=== PATIENT | male | born 1995 | race Caucasian/White ===

== ENCOUNTER 2021-02-24 17:06 | Emergency (ER) | payer OTHER, SELFPAY ==
[2021-02-24 17:27] VITALS: BP 138/86; PULSE 113; RESP 16; TEMP 37.1; O2SAT 99
--- NOTE | 2021-02-24 17:37 | ED.EXTPRO ---
HPI - Extremity Problem General Chief complaint: Extremity Problem,Nontraumatic Stated complaint: R LEG REDNESS Time Seen by Provider: 02/24/21 17:37 Mode of arrival: ambulatory Limitations: no limitations History of Present Illness HPI Narrative: Alyssia Sanford is a 25 yo male with no PMH who comes to [facility] with swelling of his right lower extremity. He has an sore on his anterior lower right leg on the tibia that occurred 2 weeks ago and yesterday when he woke up he said his foot was swollen and his leg was turning red and he has not changed much since yesterday but he decided to come and see someone he is allergic to sulfa drugs and is and he is afebrile, nontachycardic, no nausea vomiting, not feeling ill states he is anxious being here Related Data Allergies Allergy/AdvReac Type Severity Reaction Status Date / Time Sulfa (Sulfonamide Allergy Mild Unknown Verified 02/24/21 17:20 Antibiotics) skin cleanser combination Allergy Unknown conjunctivi Verified 02/24/21 17:20 no. 10 tis [Rosanil] skin cleanser combination Allergy Unknown conjunctivi Verified 02/24/21 17:20 no.23 tis [Sumadan] sulfacetamide Allergy Unknown conjunctivi Verified 02/24/21 17:20 tis sulfur [Avar] Allergy Unknown conjunctivi Verified 02/24/21 17:20 tis urea [Rosula] Allergy Unknown conjunctivi Verified 02/24/21 17:20 tis Review of Systems Review of Systems: Narrative: CONSTITUTIONAL: Denies fever, chills, sweats. EYES: Denies visual changes, redness, discharge. ENT: Denies rhinorrhea, congestion, sore throat, otalgia. CARDIOVASCULAR: Denies chest pain, palpitations, edema. RESPIRATORY: Denies dyspnea, wheezing, cough GASTROINTESTINAL: Denies abdominal pain, nausea, vomiting, diarrhea. GENITOURINARY: Denies dysuria, hematuria, abnormal discharge SKIN: Denies rash or itching. He is lower right extremity is red and swollen surrounding a sore where he was injured about 2 weeks ago NEUROLOGIC: Denies numbness, or focal weakness. PSYCHIATRIC: Denies anxiety or depression. PMF Past Medical History Medical History No acute medical problems Family History Family History Sibling Family history of attention deficit hyperactivity disorder (ADHD) Social History Social History Smoking status: Never smoker Alcohol intake: never Comments At time of signature, I agree with nursing past medical, surgical, social and family history. There is no relevant family history pertinent to the presenting complaint. Exam Narrative: Exam Narrative: GENERAL: This is a well-nourished, well-developed patient, in mild distress. HEAD: normocephalic, atraumatic. EYES: PERRL. Sclera clear/white. Vision is grossly intact. EARS: External ears normal, auditory canals clear and without drainage, TMs normal without perforation. Hearing grossly intact. NOSE: External nose normal without nasal discharge, nares without redness, no rhinorrhea. THROAT: Mucous membranes moist, posterior pharynx NECK: Neck supple, non-tender CARDIOVASCULAR: Regular rate and rhythm without murmurs, gallops, or rubs. RESPIRATORY: Clear to auscultation. Breath sounds equal bilaterally. No wheezes, rales, or rhonchi. GASTROINTESTINAL: Abdomen soft, non-tender, SKIN: warm, intact with erythema of the lower right extremity that starts about 4 inches below the knee it is in scabbed over sore that he took the scab off of and there is redness that starts from that area down to the top of his foot and around 3 cores of the back of his his leg his foot is swollen on the lateral side right at the ankle area, the back of his leg and around the redness of the sore feels slightly warm foot is normal temperature he has 2+ pedal pulse NEURO: awake, alert, and oriented to person, place and time. There were no obvious foc
== END 2021-02-24 17:55 | disposition home or self-care (01) ==
PROVIDERS: Emergency Provider Nurse Practitioner; PCP Family Medicine
DX: L03.115 Cellulitis of right lower limb (principal); F41.9 Anxiety disorder, unspecified
CPT/HCPCS: 99213; G0463

== ENCOUNTER 2021-02-24 20:25 | Emergency (ER) | payer OTHER, SELFPAY ==
--- NOTE | ~2021-02-24 | XR_ITS ---
EXAMINATION: XR tibia fibula RT 2V EXAM DATE: 02/24/2021 20:58 INDICATION: Initial encounter following injury, with pain of the right tibia/fibula. Injury 2 weeks a go, pain and redness. TECHNIQUE: Right tibia/fibula frontal and lateral projections obtained and reviewed. There is no bhanu or study for comparison. FINDINGS: Right tibial and fibular shafts unremarkable. There are no acute fractures or dislocations identified. There is no subcutaneous gas. The soft tissue is unremarkable. There are no radiopaq ue foreign bodies. IMPRESSION: 1. Right tibia/fibula exam without acute osseous findings. Reviewed, dictated and finalized at location A.
[2021-02-24 20:26] VITALS: BP 140/76; PULSE 119; RESP 20; TEMP 35.8; O2SAT 98
[2021-02-24 20:36] VITALS: BP 138/84; O2SAT 96
[2021-02-24 20:37] VITALS: O2SAT 98
--- NOTE | 2021-02-24 20:45 | ED.LOWEXIN ---
HPI - Extremity Injury (Lower) General Chief Complaint: Extremity Injury, Lower Stated Complaint: rt leg infection and swelling Time Seen by Provider: 02/24/21 20:33 Source: patient, family and RN notes reviewed Mode of arrival: ambulatory Limitations: no limitations History of Present Illness HPI Narrative: Patient is 25 years old white male accidentally hit a metal pole 2 weeks ago to the front of the right lower leg called some impression, healed by a scab. Patient removed the scab 2 to 3 days ago subsequently developed redness around that area. Patient was seen by urgent care today and started on Keflex 1 hour ago. Patient came to the emergency room because he believes the redness is getting worse. Patient denies any fever, chills, nausea, vomiting. Patient is healthy otherwise, does not take any medication at home. Related Data Allergies Allergy/AdvReac Type Severity Reaction Status Date / Time Sulfa (Sulfonamide Allergy Mild Unknown Verified 02/24/21 17:20 Antibiotics) skin cleanser combination Allergy Unknown conjunctivi Verified 02/24/21 17:20 no. 10 tis [Rosanil] skin cleanser combination Allergy Unknown conjunctivi Verified 02/24/21 17:20 no.23 tis [Sumadan] sulfacetamide Allergy Unknown conjunctivi Verified 02/24/21 17:20 tis sulfur [Avar] Allergy Unknown conjunctivi Verified 02/24/21 17:20 tis urea [Rosula] Allergy Unknown conjunctivi Verified 02/24/21 17:20 tis Review of Systems Review of Systems: Narrative: CONSTITUTIONAL: Denies fever, chills, or sweats. EYES: Denies visual changes, redness, or discharge. ENT: Denies rhinorrhea, congestion, sore throat, or otalgia. CARDIOVASCULAR: Denies chest pain, palpitations, or edema. RESPIRATORY: Denies cough or dyspnea. GASTROINTESTINAL: Denies abdominal pain, nausea, vomiting, or diarrhea. GENITOURINARY: Denies dysuria or hematuria. SKIN: Denies rash or itching. MUSCULOSKELETAL: Denies back pain, joint pain, or myalgia. NEUROLOGIC: Denies headache, numbness, or weakness. PSYCHIATRIC: Denies anxiety or depression. [facility] Past Medical History Medical History No acute medical problems Family History Family History Sibling Family history of attention deficit hyperactivity disorder (ADHD) Social History Social History Smoking status: Never smoker Alcohol intake: never Exam Narrative: Exam Narrative: General appearance: Well-developed, well-nourished Skin: Right lower extremity showed 3 x 5 mm sore, closed, anteriorly, no discharge, surrounded by erythema which is slightly warm. No tenderness at the calf muscles. No bruises. Chest and respiratory: Airway patent, no respiratory distress, no accessory muscle use Heart: Regular rate/rhythm Vascular: Normal peripheral pulses, normal capillary refill. Musculoskeletal: Normal range of motion, nontender back Course Course Emergency Course: Here he is does not stable Vital Signs Vital signs: Vital Signs Temperature 35.8 C L 02/24/21 20:26 Pulse Rate 119 H 02/24/21 20:26 Respiratory Rate 20 02/24/21 20:26 Blood Pressure 140/76 02/24/21 20:26 Pulse Oximetry 98 02/24/21 20:26 Temperature 35.8 C L 02/24/21 20:26 Pulse Rate 119 H 02/24/21 20:26 Respiratory Rate 20 02/24/21 20:26 Blood Pressure 138/84 02/24/21 20:36 Pulse Oximetry 98 02/24/21 20:37 MDM - Extremity Injury (Lower) MDM Narrative Medical decision making narrative: Right lower extremity cellulitis secondary to trauma Lab Data Result diagr
[2021-02-24 21:02] LABS: Basophils Percent Auto 0.3 % (0.2-1.2); Eosinophils Absolute Auto 0.1 K/mm3 (0-0.3); Eosinophils Percent Auto 0.5 % (0-4.4); Hematocrit 39.2 % (42.0-52.0); Hemoglobin 13.6 g/dL (14.0-18.0); Immature Granulocyte Absolute 0.07 K/mm3 (0.00-0.031); Immature Granulocyte Percent A 0.5 % (0-0.5); Lymphocytes Absolute Auto 1.98 K/mm3 (0.9-3.2); Lymphocytes Percent Auto 14.4 % (18.3-44.2); Mean Corpuscular HGB Conc 34.7 g/dl (32-36); Mean Corpuscular Hemoglobin 32.2 pg (26-34); Mean Corpuscular Volume 92.9 fl (80-100); Mean Platelet Volume 9.3 fl (7.4-10.4); Monocytes Absolute Auto 1.6 K/mm3 (0.1-0.6); Monocytes Percent Auto 11.2 % (2.6-8.5); Neutrophils Absolute Auto 10.1 K/mm3 (1.3-6.7); Neutrophils Percent Auto 73.1 % (45.5-73.1); Platelet Count Result 246 k/mm3 (150-375); Red Blood Count 4.22 M/mm3 (4.6-6.20); Red Cell Distribution Width 11.8 % (11.5-14.5); White Blood Count 13.8 K/mm3 (4.5-10.0)
== END 2021-02-24 23:13 | disposition home or self-care (01) ==
PROVIDERS: Emergency Provider Emergency Medicine; PCP Family Medicine
DX: L03.115 Cellulitis of right lower limb (principal)
CPT/HCPCS: 36415; 73590; 85025; 96365; 96366; 99284; J3370

== ENCOUNTER 2021-03-12 17:06 | Outpatient (CLI) | payer OTHER, SELFPAY | END 2021-03-12 17:07 | disposition home or self-care (01) | LOC: ANHCOVIDVC 17:06 | PROVIDERS: PCP Family Medicine | DX: Z23 Encounter for immunization (principal) | CPT/HCPCS: 0001A; 91300 ==

== ENCOUNTER → 2021-03-20 16:17 | Outpatient (CLI) | payer OTHER, SELFPAY ==
--- NOTE | ~2021-03-20 | XR_ITS ---
EXAMINATION: XR tibia fibula RT 2V DATE: 03/20/2021 16:37 INDICATION: Right lower leg erythema and swelling. TECHNIQUE: 2 views of right tibia and fibula on 3 radiographs were obtained. COMPARISON: Right tibia and fibula radiographs 02/24/2021 FINDINGS: Bone alignment is normal. No fracture. There is no evidence of osteomyelitis. Joint spaces are well maintained. IMPRESSION: 1. Normal tibia and fibula. Reviewed, dictated and finalized at location B. IMPRESSION: 1. Normal tibia and fibula.
== END ==
PROVIDERS: PCP Family Medicine; Visit Provider Family Medicine
DX: L03.90 Cellulitis, unspecified (principal)
CPT/HCPCS: 73590

== ENCOUNTER 2021-04-02 16:55 | Outpatient (CLI) | payer OTHER, SELFPAY | END 2021-04-02 16:56 | disposition home or self-care (01) | LOC: ANHCOVIDVC 16:55 | PROVIDERS: PCP Family Medicine | DX: Z23 Encounter for immunization (principal) | CPT/HCPCS: 0002A; 91300 ==

== ENCOUNTER → 2021-06-08 08:45 | Outpatient (CLI) | payer OTHER, SELFPAY ==
--- NOTE | ~2021-06-08 | US_ITS ---
US abdomen limited DATE: 06/08/2021 09:23 INDICATION: Abnormal liver function studies TECHNIQUE: Real-time imaging of liver, pancreas, gallbladder COMPARISON: None FINDINGS: There is hepatic steatosis. No hepatic or pancreatic space-occupying mass lesion is evident. No evidence of gallstones, gallbladd er wall thickening or abnormal pericholecystic fluid collection. Negative sonographic Mckinney's sign. The common bile duct measures 4 mm, normal. IMPRESSION: Hepatic steatosis Reviewed, dictated and finalized at Location A. Reviewed, dictated and finalized at location A. IMPRESSION: Hepatic steatosis
== END ==
PROVIDERS: Visit Provider Family Medicine
DX: R94.5 Abnormal results of liver function studies (principal); K76.0 Fatty (change of) liver, not elsewhere classified
CPT/HCPCS: 76705

== ENCOUNTER 2021-07-16 12:13 | Emergency (ER) | payer OTHER, SELFPAY ==
--- NOTE | ~2021-07-16 | XR_ITS ---
EXAMINATION: XR foot RT min 3V DATE: 07/16/2021 12:35 INDICATION: Pain at the right great toe and medial right foot post injury 2 days prior TECHNIQUE: Dorsoplantar, two oblique and lateral views of the right foot were obtained. COMPARISON: None. FINDINGS: Fracture potentially intra-articular at the distal dorsal rim of the medial cuneiform with 1-2 mm lizandro siri displacement of the small fragment which is best appreciated on the lateral projection. Otherwise normal alignment at the right foot. No other fractures identified. Joint spaces are normal. Soft tis rohini swelling at the medial aspect of the right foot. IMPRESSION: 1. Minimally displaced potentially an intra-articular fracture at the dorsal aspect of the distal mar gin of the medial cuneiform. Reviewed, dictated and finalized at location A. IMPRESSION: 1. Minimally displaced potentially an intra-articular fracture at the dorsal as pect of the distal margin of the medial cuneiform.
[2021-07-16 12:23] VITALS: BP 135/93; PULSE 89; RESP 16; TEMP 36.5; O2SAT 100
--- NOTE | 2021-07-16 12:29 | ED.GENADULT ---
HPI - General Adult General Chief complaint: Extremity Injury, Lower Stated complaint: rt foot injury Source: patient Mode of arrival: ambulatory Limitations: no limitations History of Present Illness HPI narrative: Patient is a 26-year-old male who presents to the [facility] via POV for evaluation of a right foot injury that occurred 2 days ago. He states his right foot hit a rock while jumping off a larger rock. Additionally, he reports bruising, swelling, and pain. Pain is intermittent and sharp in nature. Current pain is 7 out of 10 on a pain scale. He also reports a avulsion to right great toe. Denies taking OTC meds for symptoms. He has noticed a reduction in pain and swelling when wearing an wrap. Symptoms are improved with sitting. Pain worsens with walking and weightbearing. Related Data Allergies Allergy/AdvReac Type Severity Reaction Status Date / Time Sulfa (Sulfonamide Allergy Mild Unknown Verified 07/16/21 12:24 Antibiotics) skin cleanser combination Allergy Unknown conjunctivi Verified 07/16/21 12:24 no. 10 tis [Rosanil] skin cleanser combination Allergy Unknown conjunctivi Verified 07/16/21 12:24 no.23 tis [Sumadan] sulfacetamide Allergy Unknown conjunctivi Verified 07/16/21 12:24 tis sulfur [Avar] Allergy Unknown conjunctivi Verified 07/16/21 12:24 tis urea [Rosula] Allergy Unknown conjunctivi Verified 07/16/21 12:24 tis Review of Systems Review of Systems: Denies fever, chills, sweats, change in appetite, lymphadenopathy, shortness of breath, chest pain, heart palpitations, erythema, streaking, warmth, decreased ROM, cyanosis, hematoma, deformity, or puncture, ligament laxity, pain at rest. [facility] Past Medical History Medical History Corneal scar and opacity Essential hypertension Nicotine dependence, chewing tobacco, uncomplicated No acute medical problems Family History Family History Sibling Family history of attention deficit hyperactivity disorder (ADHD) Social History Social History Smoking status: Current some day smoker Tobacco type: e-cigarettes/vaping Additional smoking assessment comments: 3 cigarettes per day plus vape. Alcohol intake: current Drinks per week: 28 Substance use: never Substance use type: does not use Gender identity (if verbalized by the patient): Male Comments I have reviewed and agree with the patient's past medical, surgical, social, and family hx as documented by the RN. There is no relevant family history pertinent to the presenting complaint. Exam Narrative: GENERAL: Well-appearing, well-nourished, and in no acute distress. HEAD: Normocephalic, atraumatic. NECK: Supple. No Lymphadenopathy or nuchal rigidity appreciated. CHEST: Bilateral lung william are clear to auscultation. No respiratory distress. No evidence of cough or pleuritic cp upon examination. HEART: Regular rate and rhythm. No murmur, gallop, or rub heard. EXTREMITIES: Moderate generalized swelling noted to right foot. Point tenderness noted to medial aspect of right foot. Mild contusion noted to medial aspect of right foot. Small skin avulsion noted to medial aspect of right great toe. No evidence of decreased ROM, cyanosis, hematoma, deformity, rash, or puncture. Mild generalized pain elicited with all active/passive ROM. No evidence of dislocation, ligament laxity, effusion, or pain at rest. Pulses palpable at 2+, strength 5/5, and cap refill < 3 seconds in affected extremity. DTRs normal. Gait normal. SKIN: Warm, dry, no rash. Small skin avulsion noted to medial aspect of right great toe NEURO: No focal deficits. Alert and oriented x3. SPECIAL OBSERVATIONS: Smiling. Laughing. Course Vital Signs Vital signs: Vital Signs Temperature 97.7
== END 2021-07-16 13:30 | disposition home or self-care (01) ==
PROVIDERS: Emergency Provider Nurse Practitioner Family; PCP Family Medicine
DX: S92.231A Displaced fracture of intermediate cuneiform of right foot, initial encounter for closed fracture (principal); W22.8XXA Striking against or struck by other objects, initial encounter; Y93.39 Activity, other involving climbing, rappelling and jumping off; I10 Essential (primary) hypertension; F17.210 Nicotine dependence, cigarettes, uncomplicated; F17.200 Nicotine dependence, unspecified, uncomplicated; F17.220 Nicotine dependence, chewing tobacco, uncomplicated
CPT/HCPCS: 29515; 73630; 99214; G0463